=== PATIENT | female | born 1945 | race Two or more races ===

== ENCOUNTER 2019-02-22 09:04 | Day surgery (SDC) | payer OTHER ==
[~2019-02-22 09:04] MED LIST: CIPRO500 MG PO; INTESTINEX1 CA1 PO; ULTRACET PO
== END 2019-02-22 13:10 | disposition home or self-care (01) ==
LOC: AMB-ENDOS 09:04
DX: K57.30 Diverticulosis of large intestine without perforation or abscess without bleeding (principal); K62.7 Radiation proctitis

== ENCOUNTER 2021-03-12 06:10 | Day surgery (SDC) | payer OTHER | END 2021-03-12 10:05 | disposition home or self-care (01) | LOC: AMB-ENDOS 06:10 | PROVIDERS: ATTEND Surgery | DX: D12.3 Benign neoplasm of transverse colon (principal); Z20.822 Contact with and (suspected) exposure to COVID-19; K64.8 Other hemorrhoids ==